=== PATIENT | male | born 1980 | race African-American/Black ===

== ENCOUNTER 2019-06-19 23:34 | Emergency (ER) | payer SELFPAY ==
[2019-06-19] MEDS ORDERED: INSULIN -REGULAR HUMAN 50 UNIT/0.5 ML ML ONE (23:55)
[2019-06-20] MEDS ORDERED: INSULIN GLARGINE 100 UNITS/ML SQ ONE (00:08)
[2019-06-20 00:33] LABS: Absolute Lymphocytes (CBC) 0.4 K/uL (0.7-4.9); Basophils % 0.7 % (0-1.3); Hematocrit 45.2 % (39.6-49.0); Lymphocytes % 5.3 % (15.3-44.8); MPV 9.3 fL (7.6-11.3); RBC Red Blood Cell Count 5.84 M/uL (4.33-5.43)
[2019-06-20 00:49] LABS: BUN Blood Urea Nitrogen 13 mg/dL (7-18); Bicarbonate 25 mmol/L (21-32); Glucose Level 527 mg/dL (74-106); Potassium 3.8 mmol/L (3.5-5.1); Sodium Level 133 mmol/L (136-145)
[2019-06-20 00:51] LABS: ALT/SGPT 49 U/L (12-78); AST/SGOT 27 U/L (15-37); Albumin 3.3 g/dL (3.4-5.0); Alkaline Phosphatase 123 U/L (45-117); Bilirubin Direct < 0.1 mg/dL (0-0.2); Bilirubin Total 0.4 mg/dL (0.2-1.0); Magnesium 1.8 mg/dL (1.8-2.4); Protein, Total 6.6 g/dL (6.4-8.2); Troponin (Emerg Dept Use Only) < 0.02 ng/mL (0.0-0.045)
[2019-06-20 01:30] LABS: Blood Morphology Comment NOT SEEN (NOT SEEN); Platelet Estimate ADEQ
[2019-06-20] MEDS ORDERED: INSULIN -REGULAR HUMAN 50 UNIT/0.5 ML ML ONE (01:43)
[2019-06-20] MEDS ORDERED: NA CHLORIDE 0.9% 2,000 ML ONE (01:43)
[2019-06-20 03:04] LABS: BUN Blood Urea Nitrogen 10 mg/dL (7-18); Bicarbonate 26 mmol/L (21-32); Glucose Level 234 mg/dL (74-106); Potassium 3.5 mmol/L (3.5-5.1); Sodium Level 139 mmol/L (136-145)
--- NOTE | 2019-06-20 03:15 | ER ---
Nurse's Notes [facility] Name: Dawson Mi Age: 38 yrs Sex: Male : 1980 Arrival Date: 06/19/2019 Time: 23:35 Bed 6 Private MD: Diagnosis: Type 1 diabetes mellitus Presentation: 06/19 23:37 Presenting complaint: EMS states: "we were called for a pt having some high blood jd3 sugar. it was reading over 500 for us. he was reporting some body aches and pains. denies nausea and vomiting. we started an 18 G IV to the left AC and gave a total of 1000 ml NS.". Transition of care: patient was not received from another setting of care. Onset of symptoms was June 19, 2019. Risk Assessment: Do you want to hurt yourself or someone else? Patient reports no desire to harm self or others. Initial Sepsis Screen: Does the patient meet any 2 criteria? No. Patient's initial sepsis screen is negative. Does the patient have a suspected source of infection? No. Patient's initial sepsis screen is negative. Care prior to arrival: IV initiated. 18 GA, in the left antecubital area, Glucose check: 500. 23:37 Method Of Arrival: EMS: [facility] jd3 23:37 Acuity: EDINSON 3 jd3 Historical: - Allergies: 23:41 No Known Allergies; jd3 - Home Meds: 23:41 Lantus 100 unit/mL Sub-Q soln [Active]; jd3 - PMHx: 23:41 Diabetes - NIDDM; jd3 - PSHx: 23:41 None; jd3 - Immunization history:: Adult Immunizations up to date. - Social history:: Smoking status: Patient uses tobacco products, smokes one-half pack cigarettes per day. - Family history:: not pertinent. - Ebola Screening: : Patient negative for fever greater than or equal to 101.5 degrees Fahrenheit, and additional compatible Ebola Virus Disease symptoms. Screenin/22 00:41 Abuse screen: Denies threats or abuse. Nutritional screening: No deficits noted. jd3 Tuberculosis screening: No symptoms or risk factors identified. Fall Risk IV access (20 points). Ambulatory Aid- None/Bed Rest/Nurse Assist (0 pts). Gait- Normal/Bed Rest/Wheelchair (0 pts) Mental Status- Oriented to own ability (0 pts). Total Beck Fall Scale indicates No Risk (0-24 pts). Assessment: 06/19 23:40 General: Appears in no apparent distress. comfortable, Behavior is calm, cooperative, jd3 appropriate for age, Reports occasional body aches. Pain: Denies pain. Neuro: Level of Consciousness is awake, alert, obeys commands, Oriented to person, place, time, situation. Cardiovascular: Heart tones S1 S2 present Capillary refill < 3 seconds Patient's skin is warm and dry. Respiratory: Airway is patent Respiratory effort is even, unlabored, Respiratory pattern is regular, symmetrical, Breath sounds are clear bilaterally. GI: No signs and/or symptoms were reported involving the gastrointestinal system. Patient currently denies diarrhea, nausea, vomiting. : No signs and/or symptoms were reported regarding the genitourinary system. EENT: No signs and/or symptoms were reported regarding the EENT system. Derm: Skin is intact, Skin is dry, Skin is normal, Skin temperature is warm. Musculoskeletal: Circulation, motion, and sensation intact. Range of motion: intact in all extremities. 06/20 00:38 Reassessment: Patient appears in no apparent distress at this time. No changes from jd3 previously documented assessment. Patient and/or family updated on plan of care and expected duration. Pain level reassessed. Patient is alert, oriented x 3, equal unlabored respirations, skin warm/dry/pink. Patient denies pain at this time. 01:28 Reassessment: Patient appears in no apparent distress at this time. Patient and/or jd3 family updated on plan of care and expected duration. Pain level reassessed. Patient is alert, oriented x 3, equal unlabored respirations, skin warm/dry/pink. resting in bed with even and unlabored respirations. eyes closed. no distress noted. call milton in reach. 02:47 Reassessment: Patient appears in no apparent distress at this time. No changes from jd3 previously documented assessment. Patient and/or family updated on plan of care and expected duration. Pain level reassessed. Patient is alert, oriented x 3, equal unlabored respirations, skin warm/dry/pink. 03:24 Reassessment: Patient appears in no apparent distress at this time. Patient and/or jd3 family updated on plan of care and expected duration. Pain level reassessed. Patient is alert, oriented x 3, equal unlabored respirations, skin warm/dry/pink. pt reported understanding of discharge instructions. even and steady gait upon discharge. Vital Signs: 06/19 23:42 BP 124 / 71; Pulse 93; Resp 16 S; Temp 98.6(O); Pulse Ox 98% on R/A; Weight 102.06 kg jd3 (R); Height 6 ft. 8 in. (203.20 cm) (R); Pain 0/10; 06/20 01:27 BP 113 / 71; Pulse 95; Resp 17 S; Pulse Ox 100% on R/A; jd3 02:46 BP 124 / 77; Pulse 95; Resp 18 S; Pulse Ox 98% on R/A; jd3 06/19 23:42 Body Mass Index 24.72 (102.06 kg, 203.20 cm) jd3 ED Course: 06/19 23:35 Patient arrived in ED. ds1 23:35 Sarath Saucedo MD is Attending Physician. lindy 23:36 Live Drake RN is Primary Nurse. jd3 23:37 Maintain EMS IV. Dressing intact. Good blood return noted. Site clean \\T\\ dry. Gauge \\T\\ yenifer 3 site: 18 G left AC. 23:41 Triage completed. jd3 23:42 Arm band placed on. jd3 06/20 00:04 XRAY Chest (1 view) In Process Unspecified. EDMS 00:42 Patient has correct armband on for positive identification. Placed in gown. Bed in low jd3 position. Call light in reach. Side rails up X 1. 03:22 No provider procedures requiring assistance completed. IV discontinued, intact, jd3 bleeding controlled, No redness/swelling at site. Pressure dressing applied. Administered Medications: 00:04 Drug: Insulin Regular Human 10 units {Co-Signature: rr5 (Josh Kingston RN).} Route: jd3 IVP; Site: left antecubital; 01:00 Follow up: Response: No adverse reaction jd3 00:04 Drug: Insulin Regular Human 10 units {Co-Signature: rr5 (Josh Kingston RN).} Route: jd3 Sub-Q; Site: abdomen; 01:00 Follow up: Response: No adverse reaction jd3 00:16 Drug: LanTUS 40 units Route: Sub-Q; Site: abdomen; jd3 01:10 Follow up: Response: No adverse reaction jd3 01:45 Drug: NS 0.9% 1000 ml Route: IV; Rate: 1 bolus; Site: left antecubital; jd3 02:35 Follow up: Response: No adverse reaction; IV Status: Completed infusion; IV Intake: jd3 1000ml 01:46 Drug: Insulin Regular Human 8 units {Co-Signature: aa1 (Zully Mendieta RN).} Route: jd3 IVP; Site: left antecubital; 03:26 Follow up: Response: No adverse reaction jd3 02:35 Drug: NS 0.9% 1000 ml Route: IV; Rate: 1 bolus; Site: left antecubital; jd3 03:26 Follow up: Response: No adverse reaction; IV Status: Completed infusion; IV Intake: jd3 1000ml Intake: 02:35 IV: 1000ml; Total: 1000ml. jd3 03:26 IV: 1000ml; Total: 2000ml. jd3 Outcome: 03:14 Discharge ordered by MD. israel 03:23 Discharged to home ambulatory, with family. jd3 03:23 Condition: stable 03:23 Discharge instructions given to patient, Instructed on discharge instructions, follow up and referral plans. medication usage, Demonstrated understanding of instructions, follow-up care, medications, Prescriptions given X 2. 03:26 Patient left the ED. jd3 Signatures: Dispatcher [employer] Sarath Edwards MD MD cha Sanford, Isela ds1 Live Drake RN RN jd3 Josh Kingston RN rr5 Zully Mendieta RN aa1
--- NOTE | 2019-06-20 03:15 | EDPHYS ---
Physician Documentation [facility] Name: Dawson Mi Age: 38 yrs Sex: Male : 1980 Arrival Date: 06/19/2019 Time: 23:35 Bed 6 Private MD: ED Physician Sarath Saucedo HPI: 06/19 23:40 This 38 yrs old Black Male presents to ER via Unassigned with complaints of High Blood lindy Sugar. 23:40 The patient or guardian reports hyperglycemia, that was potentially precipitated by no lindy particular event. Onset: The symptoms/episode began/occurred 3 day(s) ago. Associated signs and symptoms: Pertinent positives: polydipsia, polyuria, Pertinent negatives: None. Current symptoms: In the emergency department the patient's symptoms are unchanged from the initial presentation. The patient has experienced similar episodes in the past, multiple times. Historical: - Allergies: 23:41 No Known Allergies; jd3 - Home Meds: 23:41 Lantus 100 unit/mL Sub-Q soln [Active]; jd3 - PMHx: 23:41 Diabetes - NIDDM; jd3 - PSHx: 23:41 None; jd3 - Immunization history:: Adult Immunizations up to date. - Social history:: Smoking status: Patient uses tobacco products, smokes one-half pack cigarettes per day. - Family history:: not pertinent. - Ebola Screening: : Patient negative for fever greater than or equal to 101.5 degrees Fahrenheit, and additional compatible Ebola Virus Disease symptoms. ROS: 23:40 Constitutional: Negative for fever, chills, and weight loss, Eyes: Negative for injury, lindy pain, redness, and discharge, ENT: Negative for injury, pain, and discharge, Neck: Negative for injury, pain, and swelling, Cardiovascular: Negative for chest pain, palpitations, and edema, Respiratory: Negative for shortness of breath, cough, wheezing, and pleuritic chest pain, Abdomen/GI: Negative for abdominal pain, nausea, vomiting, diarrhea, and constipation, Back: Negative for injury and pain, : Negative for injury, bleeding, discharge, and swelling, MS/Extremity: Negative for injury and deformity, Skin: Negative for injury, rash, and discoloration, Neuro: Negative for headache, weakness, numbness, tingling, and seizure, Psych: Negative for depression, anxiety, suicide ideation, homicidal ideation, and hallucinations, Allergy/Immunology: Negative for hives, rash, and allergies, Hematologic/Lymphatic: Negative for swollen nodes, abnormal bleeding, and unusual bruising. 23:40 Endocrine: Positive for polydipsia, polyuria. Exam: 23:40 Constitutional: This is a well developed, well nourished patient who is awake, alert, lindy and in no acute distress. Head/Face: Normocephalic, atraumatic. Eyes: Pupils equal round and reactive to light, extra-ocular motions intact. Lids and lashes normal. Conjunctiva and sclera are non-icteric and not injected. Cornea within normal limits. Periorbital areas with no swelling, redness, or edema. ENT: Nares patent. No nasal discharge, no septal abnormalities noted. Tympanic membranes are normal and external auditory canals are clear. Oropharynx with no redness, swelling, or masses, exudates, or evidence of obstruction, uvula midline. Mucous membranes moist. Neck: Trachea midline, no thyromegaly or masses palpated, and no cervical lymphadenopathy. Supple, full range of motion without nuchal rigidity, or vertebral point tenderness. No Meningismus. Chest/axilla: Normal chest wall appearance and motion. Nontender with no deformity. No lesions are appreciated. Cardiovascular: Regular rate and rhythm with a normal S1 and S2. No gallops, murmurs, or rubs. Normal PMI, no JVD. No pulse deficits. Respiratory: Lungs have equal breath sounds bilaterally, clear to auscultation and percussion. No rales, rhonchi or wheezes noted. No increased work of breathing, no retractions or nasal flaring. Abdomen/GI: Soft, non-tender, with normal bowel sounds. No distension or tympany. No guarding or rebound. No evidence of tenderness throughout. Back: No spinal tenderness. No costovertebral tenderness. Full range of motion. Skin: Warm, dry with normal turgor. Normal color with no rashes, no lesions, and no evidence of cellulitis. MS/ Extremity: Pulses equal, no cyanosis. Neurovascular intact. Full, normal range of motion. Neuro: Awake and alert, GCS 15, oriented to person, place, time, and situation. Cranial nerves II-XII grossly intact. Motor strength 5/5 in all extremities. Sensory grossly intact. Cerebellar exam normal. Normal gait. Psych: Awake, alert, with orientation to person, place and time. Behavior, mood, and affect are within normal limits. Vital Signs: 23:42 BP 124 / 71; Pulse 93; Resp 16 S; Temp 98.6(O); Pulse Ox 98% on R/A; Weight 102.06 kg jd3 (R); Height 6 ft. 8 in. (203.20 cm) (R); Pain 0/10; 06/20 01:27 BP 113 / 71; Pulse 95; Resp 17 S; Pulse Ox 100% on R/A; jd3 02:46 BP 124 / 77; Pulse 95; Resp 18 S; Pulse Ox 98% on R/A; jd3 06/19 23:42 Body Mass Index 24.72 (102.06 kg, 203.20 cm) j MDM: 06/19 23:35 Patient medically screened. [facility] 23:42 Data reviewed: vital signs, nurses notes, lab test result(s), EKG, radiologic studies, lindy plain films. 06/19 23:37 Order name: glucometer results - FOR PT WITH NO ID; Complete Time: 01:27 [facility] 06/19 23:38 Order name: Basic Metabolic Panel; Complete Time: 01:27 [facility] 06/19 23:38 Order name: CBC with Diff; Complete Time: 02:14 [facility] 06/19 23:38 Order name: LFT's; Complete Time: 01:27 [facility] 06/19 23:38 Order name: Magnesium; Complete Time: 01:27 [facility] 06/19 23:38 Order name: Troponin (emerg Dept Use Only); Complete Time: 01:27 [facility] 06/19 23:38 Order name: XRAY Chest (1 view) [facility] 06/19 23:38 Order name: Ketone, Serum; Complete Time: 01:27 [facility] 06/20 00:42 Order name: Manual Differential; Complete Time: 02:14 EDMS 06/20 01:31 Order name: Chem 7; Complete Time: 03:12 [facility] 06/20 01:33 Order name: Glucose, Ancillary Testing; Complete Time: 02:14 EDMS 06/20 01:47 Order name: Urine Dipstick--Ancillary (enter results) cm6 06/19 23:38 Order name: EKG; Complete Time: 23:39 [facility] 06/19 23:38 Order name: Cardiac monitoring; Complete Time: 23:49 [facility] 06/19 23:38 Order name: EKG - Nurse/Tech; Complete Time: 00:14 [facility] 06/19 23:38 Order name: IV Saline Lock; Complete Time: 00:01 [facility] 06/19 23:38 Order name: Labs collected and sent; Complete Time: 00:01 [facility] 06/19 23:38 Order name: O2 Per Protocol; Complete Time: 23:49 [facility] 06/19 23:38 Order name: O2 Sat Monitoring; Complete Time: 23:49 [facility] Administered Medications: 06/20 00:04 Drug: Insulin Regular Human 10 units {Co-Signature: rr5 (Josh Kingston RN).} Route: jd3 IVP; Site: left antecubital; 01:00 Follow up: Response: No adverse reaction jd3 00:04 Drug: Insulin Regular Human 10 units {Co-Signature: rr5 (Josh Kingston RN).} Route: jd3 Sub-Q; Site: abdomen; 01:00 Follow up: Response: No adverse reaction jd3 00:16 Drug: LanTUS 40 units Route: Sub-Q; Site: abdomen; jd3 01:10 Follow up: Response: No adverse reaction jd3 01:45 Drug: NS 0.9% 1000 ml Route: IV; Rate: 1 bolus; Site: left antecubital; jd3 02:35 Follow up: Response: No adverse reaction; IV Status: Completed infusion; IV Intake: jd3 1000ml 01:46 Drug: Insulin Regular Human 8 units {Co-Signature: aa1 (Zully Mendieta RN).} Route: jd3 IVP; Site: left antecubital; 03:26 Follow up: Response: No adverse reaction jd3 02:35 Drug: NS 0.9% 1000 ml Route: IV; Rate: 1 bolus; Site: left antecubital; jd3 03:26 Follow up: Response: No adverse reaction; IV Status: Completed infusion; IV Intake: jd3 1000ml Disposition: 06/20/19 03:14 Discharged to Home. Impression: Type 1 diabetes mellitus. - Condition is Stable. - Discharge Instructions: Type 1 Diabetes Mellitus, Diagnosis, Adult, Basic Carbohydrate Counting for Diabetes Mellitus, Diabetes and Exercise, Insulin Treatment for Diabetes, Type 1 Diabetes Mellitus, Self Care, Adult, Type 1 Diabetes Mellitus, Diagnosis, Adult, [id number], Type 1 Diabetes Mellitus, Self Care, Adult, [id number]. - Prescriptions for Lantus 100 unit/mL Subcutaneous solution - inject 40 unit by SUBCUTANEOUS route once daily; 1 Cartridge. Novolin R 100 unit/mL Injection solution - inject 6 unit by SUBCUTANEOUS route 3 times per day; 1 vial. - Medication Reconciliation Form, Thank You Letter, Antibiotic Education, Prescription Opioid Use form. - Follow up: Private Physician; When: 2 - 3 days; Reason: Recheck today's complaints, Continuance of care, Re-evaluation by your physician. - Problem is new. - Symptoms have improved. Signatures: Dispatcher [employer] [facility] Sarath Saucedo MD MD cha Davies, Jonathon, RN RN jd3 Josh Kingston RN rr5 Zully Mendieta RN aa1 Corrections: (The following items were deleted from the chart) 06/19 23:39 23:37 GLUCOSE+[id number].LAB.BRZ ordered. [facility] 06/20 03:26 03:14 06/20/2019 03:14 Discharged to Home. Impression: Type 1 diabetes mellitus. jd3 Condition is Stable. Discharge Instructions: Type 1 Diabetes Mellitus, Diagnosis, Adult, Insulin Treatment for Diabetes, Type 1 Diabetes Mellitus, Self Care, Adult, Type 1 Diabetes Mellitus, Diagnosis, Adult, [id number], Type 1 Diabetes Mellitus, Self Care, Adult, [id number], Basic Carbohydrate Counting for Diabetes Mellitus, Diabetes and Exercise. Prescriptions for Lantus 100 unit/mL Subcutaneous solution - inject 40 unit by SUBCUTANEOUS route once daily; 1 Cartridge, Novolin R 100 unit/mL Injection solution - inject 8 unit by SUBCUTANEOUS route 3 times per day; 1 vial. and Forms are Medication Reconciliation Form, Thank You Letter, Antibiotic Education, Prescription Opioid Use. Follow up: Private Physician; When: 2 - 3 days; Reason: Recheck today's complaints, Continuance of care, Re-evaluation by your physician. Problem is new. Symptoms have improved. lindy
[2019-06-20 03:18] LABS: Urine Blood NEGATIVE (NEG); Urine Glucose 2+ (NEG); Urine Protein NEGATIVE (NEG); Urine Specific Gravity <1.005 (1.005-1.030)
[2019-06-20 03:50] VITALS: TEMP 98.6
[2019-06-20 03:52] VITALS: BP 124/77; O2SAT 98
--- NOTE | 2019-06-20 09:43 | RAD REPORT ---
EXAM DESCRIPTION: RAD - Chest Single View - 06/20/2019 12:02 am CLINICAL HISTORY: COUGH Chest pain. COMPARISON: Chest Single View dated 12/17/2016; Chest Single View dated 10/07/2016 FINDINGS: Portable technique limits examination quality. The lungs are grossly clear. The heart is normal in size. No displaced fractures. IMPRESSION: No acute intrathoracic process suspected.
--- NOTE | 2019-06-21 20:49 | EKG ---
Test Date: 2019-06-20 Test Time: 00:18:00 Bag Tester: TIMO MEASUREMENT RESULTS: Intervals: Rate: 86 [place]: 174 QRSD: 98 QT: 344 QTc: 411 [place]: P: 77 [place]: 174 QRS: 71 T: 56 INTERPRETIVE STATEMENTS: Normal sinus rhythm Biatrial enlargement ST elevation, consider anterior injury or acute infarct ACUTE [place] / STEMI Abnormal ECG Compared to ECG 12/17/2016 14:43:00 Atrial abnormality now present ST (T wave) deviation now present Myocardial infarct finding now present Sinus tachycardia no longer present T-wave abnormality no longer present Possible ischemia no longer present Electronically Signed On 06-21-19 20:46:57 [employer] by Tam Alejo
== END 2019-06-20 03:26 | disposition home or self-care (01) ==
LOC: ER 23:34
DX: E10.65 Type 1 diabetes mellitus with hyperglycemia (principal); F17.210 Nicotine dependence, cigarettes, uncomplicated; Z79.4 Long term (current) use of insulin
CPT/HCPCS: 36415; 71045; 80048; 80076; 81003; 82010; 82947; 83735; 84484; 85025; 93005; 96361; 96372; 96374; 99284; J1815; J7030

== ENCOUNTER 2019-06-21 20:43 | Emergency (ER) | payer SELFPAY ==
--- NOTE | 2019-06-21 21:25 | EDPHYS ---
Physician Documentation [facility] Name: Dawson Mi Age: 38 yrs Sex: Male : 1980 Arrival Date: 06/21/2019 Time: 20:43 Bed 18 Private MD: ED Physician Sarath Saucedo HPI: 06/21 21:21 This 38 yrs old Black Male presents to ER via EMS with complaints of cough and lindy congestion. 21:21 The patient or guardian reports cough. Onset: The symptoms/episode began/occurred 2 lindy day(s) ago. Severity of symptoms: At their worst the symptoms were mild, in the emergency department the symptoms are unchanged. Modifying factors: The symptoms are alleviated by nothing, the symptoms are aggravated by nothing. Associated signs and symptoms: The patient has no apparent associated signs or symptoms. The patient has not experienced similar symptoms in the past. Historical: - Allergies: 20:49 No Known Allergies; wh - Home Meds: 20:49 insulin regular human injection injection [Active]; - PMHx: 20:49 Diabetes - NIDDM; - PSHx: 20:49 None; - Immunization history:: Adult Immunizations not up to date. - Social history:: Smoking status: Patient uses tobacco products. - Ebola Screening: : Patient negative for fever greater than or equal to 101.5 degrees Fahrenheit, and additional compatible Ebola Virus Disease symptoms Patient denies exposure to infectious person. - Family history:: not pertinent. ROS: 21:21 Constitutional: Negative for fever, chills, and weight loss, Eyes: Negative for injury, lindy pain, redness, and discharge, ENT: Negative for injury, pain, and discharge, Neck: Negative for injury, pain, and swelling, Cardiovascular: Negative for chest pain, palpitations, and edema, Abdomen/GI: Negative for abdominal pain, nausea, vomiting, diarrhea, and constipation, Back: Negative for injury and pain, : Negative for injury, bleeding, discharge, and swelling, MS/Extremity: Negative for injury and deformity, Skin: Negative for injury, rash, and discoloration, Neuro: Negative for headache, weakness, numbness, tingling, and seizure, Psych: Negative for depression, anxiety, suicide ideation, homicidal ideation, and hallucinations, Allergy/Immunology: Negative for hives, rash, and allergies, Endocrine: Negative for neck swelling, polydipsia, polyuria, polyphagia, and marked weight changes, Hematologic/Lymphatic: Negative for swollen nodes, abnormal bleeding, and unusual bruising. 21:21 Respiratory: Positive for cough, "sounds productive". Exam: 21:21 Constitutional: This is a well developed, well nourished patient who is awake, alert, lindy and in no acute distress. Head/Face: Normocephalic, atraumatic. Eyes: Pupils equal round and reactive to light, extra-ocular motions intact. Lids and lashes normal. Conjunctiva and sclera are non-icteric and not injected. Cornea within normal limits. Periorbital areas with no swelling, redness, or edema. ENT: Nares patent. No nasal discharge, no septal abnormalities noted. Tympanic membranes are normal and external auditory canals are clear. Oropharynx with no redness, swelling, or masses, exudates, or evidence of obstruction, uvula midline. Mucous membranes moist. Neck: Trachea midline, no thyromegaly or masses palpated, and no cervical lymphadenopathy. Supple, full range of motion without nuchal rigidity, or vertebral point tenderness. No Meningismus. Chest/axilla: Normal chest wall appearance and motion. Nontender with no deformity. No lesions are appreciated. Cardiovascular: Regular rate and rhythm with a normal S1 and S2. No gallops, murmurs, or rubs. Normal PMI, no JVD. No pulse deficits. Respiratory: Lungs have equal breath sounds bilaterally, clear to auscultation and percussion. No rales, rhonchi or wheezes noted. No increased work of breathing, no retractions or nasal flaring. Abdomen/GI: Soft, non-tender, with normal bowel sounds. No distension or tympany. No guarding or rebound. No evidence of tenderness throughout. Back: No spinal tenderness. No costovertebral tenderness. Full range of motion. Male : Normal genitalia with no discharge or lesions. Skin: Warm, dry with normal turgor. Normal color with no rashes, no lesions, and no evidence of cellulitis. MS/ Extremity: Pulses equal, no cyanosis. Neurovascular intact. Full, normal range of motion. Neuro: Awake and alert, GCS 15, oriented to person, place, time, and situation. Cranial nerves II-XII grossly intact. Motor strength 5/5 in all extremities. Sensory grossly intact. Cerebellar exam normal. Normal gait. Psych: Awake, alert, with orientation to person, place and time. Behavior, mood, and affect are within normal limits. Vital Signs: 20:49 BP 127 / 79; Pulse 97; Resp 18; Temp 98.8; Pulse Ox 97% ; Weight 102.06 kg; Height 6 wh ft. 8 in. (203.20 cm); Pain 0/10; 21:57 BP 133 / 87; Pulse 87; Resp 18; Pulse Ox 97% ; wh 20:49 Body Mass Index 24.72 (102.06 kg, 203.20 cm) MDM: 20:48 Patient medically screened. [facility] 21:22 Data reviewed: vital signs, nurses notes, lab test result(s), Flu: negative radiologic [facility] studies, CT scan, plain films. 06/21 21:04 Order name: Flu; Complete Time: 21:54 06/21 21:04 Order name: Strep; Complete Time: 21:54 06/21 21:20 Order name: Chest Single View XRAY [facility] 06/21 21:25 Order name: Glucose, Ancillary Testing; Complete Time: 21:54 [facility] 06/21 21:29 Order name: Throat Culture [facility] 06/21 21:20 Order name: Blood Glucose Level; Complete Time: 21:20 [facility] Administered Medications: 21:27 Drug: Tamiflu 75 mg Route: PO; 21:58 Follow up: Response: No adverse reaction 21:27 Drug: Zithromax 500 mg Route: PO; 21:58 Follow up: Response: No adverse reaction Disposition: 06/21/19 21:25 Discharged to Home. Impression: Acute upper respiratory infection, unspecified, Type 2 diabetes mellitus, Influenza due to identified novel influenza A virus. - Condition is Stable. - Discharge Instructions: Type 2 Diabetes Mellitus, Diagnosis, Adult, Influenza, Adult, Upper Respiratory Infection, Adult, Cough, Adult, Type 2 Diabetes Mellitus, Diagnosis, Adult, [id number]. - Prescriptions for Zithromax Z- Josemanuel 250 mg Oral Tablet - take 1 tablet by ORAL route as directed for 5 days Day 1 - take two (2) tablets one time. Day 2, 3, 4 , 5 take one (1) tablet once daily.; 6 tablet. Tamiflu 75 mg Oral Capsule - take 1 tablet by ORAL route every 12 hours for 5 days; 14 tablet. - Medication Reconciliation Form, Thank You Letter, Antibiotic Education, Prescription Opioid Use form. - Follow up: Private Physician; When: 2 - 3 days; Reason: Recheck today's complaints, Continuance of care, Re-evaluation by your physician. - Problem is new. - Symptoms have improved. Signatures: Dispatcher [employer] Sarath Edwards MD MD cha [place], Winsy wh Corrections: (The following items were deleted from the chart) 21:54 21:25 06/21/2019 21:25 Discharged to Home. Impression: Acute upper respiratory lindy infection, unspecified; Type 2 diabetes mellitus. Condition is Stable. Forms are Medication Reconciliation Form, Thank You Letter, Antibiotic Education, Prescription Opioid Use. Follow up: Private Physician; When: 2 - 3 days; Reason: Recheck today's complaints, Continuance of care, Re-evaluation by your physician. Problem is new. Symptoms have improved. [facility] 22:08 21:54 06/21/2019 21:25 Discharged to Home. Impression: Acute upper respiratory wh infection, unspecified; Type 2 diabetes mellitus; Influenza due to identified novel influenza A virus. Condition is Stable. Discharge Instructions: Type 2 Diabetes Mellitus, Diagnosis, Adult, Upper Respiratory Infection, Adult, Cough, Adult, Type 2 Diabetes Mellitus, Diagnosis, Adult, [id number]. Prescriptions for Zithromax Z-Josemanuel 250 mg Oral Tablet - take 1 tablet by ORAL route as directed for 5 days Day 1 - take two (2) tablets one time. Day 2, 3, 4 , 5 take one (1) tablet once daily.; 6 tablet, Tamiflu 75 mg Oral Capsule - take 1 tablet by ORAL route every 12 hours for 5 days; 14 tablet. and Forms are Medication Reconciliation Form, Thank You Letter, Antibiotic Education, Prescription Opioid Use. Follow up: Private Physician; When: 2 - 3 days; Reason: Recheck today's complaints, Continuance of care, Re-evaluation by your physician. Problem is new. Symptoms have improved. lindy
--- NOTE | 2019-06-21 21:25 | ER ---
Nurse's Notes [facility] Name: Dawson Mi Age: 38 yrs Sex: Male : 1980 Arrival Date: 06/21/2019 Time: 20:43 Bed 18 Private MD: Diagnosis: Acute upper respiratory infection, unspecified;Type 2 diabetes mellitus;Influenza due to identified novel influenza A virus Presentation: 06/21 20:45 Presenting complaint: EMS states: Pt was seen in ER last Friday for high blood sugar, wh now C/O body aches, malaise, decreased appetite, polyuria and flu like symptoms. Transition of care: patient was not received from another setting of care. Onset of symptoms was June 19, 2019. Risk Assessment: Do you want to hurt yourself or someone else? Patient reports no desire to harm self or others. Initial Sepsis Screen: Does the patient meet any 2 criteria? HR > 90 bpm. Does the patient have a suspected source of infection? No. Patient's initial sepsis screen is negative. Care prior to arrival: Glucose check: 316. 20:45 Method Of Arrival: EMS: [facility] 20:45 Acuity: [facility] 4 Historical: - Allergies: 20:49 No Known Allergies; - Home Meds: 20:49 insulin regular human injection injection [Active]; - PMHx: 20:49 Diabetes - NIDDM; - PSHx: 20:49 None; - Immunization history:: Adult Immunizations not up to date. - Social history:: Smoking status: Patient uses tobacco products. - Ebola Screening: : Patient negative for fever greater than or equal to 101.5 degrees Fahrenheit, and additional compatible Ebola Virus Disease symptoms Patient denies exposure to infectious person. - Family history:: not pertinent. Screenin:50 Abuse screen: Denies threats or abuse. Denies injuries from another. Nutritional screening: No deficits noted. Tuberculosis screening: No symptoms or risk factors identified. Fall Risk None identified. Assessment: 20:45 General: Appears in no apparent distress. Behavior is calm, cooperative, appropriate wh for age. Pain: Denies pain. Neuro: Level of Consciousness is awake, alert, obeys commands, Oriented to person, place, time, situation, Appropriate for age. Cardiovascular: Heart tones S1 S2. Respiratory: Airway is patent Respiratory effort is even, unlabored, Respiratory pattern is regular, symmetrical, Breath sounds are clear bilaterally. GI: Abdomen is flat, non-distended. : No signs and/or symptoms were reported regarding the genitourinary system. EENT: Throat is pink. Derm: Skin is intact, is healthy with good turgor, Skin is pink, warm \T\ dry. normal. Musculoskeletal: Circulation, motion, and sensation intact. 21:47 Reassessment: Patient appears in no apparent distress at this time. No changes from previously documented assessment. Patient and/or family updated on plan of care and expected duration. Pain level reassessed. Patient is alert, oriented x 3, equal unlabored respirations, skin warm/dry/pink. Vital Signs: 20:49 BP 127 / 79; Pulse 97; Resp 18; Temp 98.8; Pulse Ox 97% ; Weight 102.06 kg; Height 6 wh ft. 8 in. (203.20 cm); Pain 0/10; 21:57 BP 133 / 87; Pulse 87; Resp 18; Pulse Ox 97% ; wh 20:49 Body Mass Index 24.72 (102.06 kg, 203.20 cm) ED Course: 20:43 Patient arrived in ED. ds1 20:45 Soledad Arce is Primary Nurse. 20:47 Triage completed. 20:48 Sarath Saucedo MD is Attending Physician. [facility] 20:50 Patient has correct armband on for positive identification. Placed in gown. Bed in low wh position. Call light in reach. Side rails up X 1. Pulse ox on. NIBP on. 20:50 Arm band placed on right wrist. 21:46 Chest Single View XRAY In Process Unspecified. EDMS 22:07 No provider procedures requiring assistance completed. Patient did not have IV access during this emergency room visit. Administered Medications: 21:27 Drug: Tamiflu 75 mg Route: PO; 21:58 Follow up: Response: No adverse reaction 21:27 Drug: Zithromax 500 mg Route: PO; 21:58 Follow up: Response: No adverse reaction Outcome: 21:25 Discharge ordered by . [facility] 22:08 Discharged to home ambulatory. 22:08 Condition: stable 22:08 Discharge instructions given to patient, Instructed on discharge instructions, follow up and referral plans. medication usage, POC URTI, Flu Demonstrated understanding of instructions, follow-up care, medications, POC Prescriptions given X 2. 22:08 Patient left the ED. Signatures: Dispatcher [employer] Sarath Edwards MD MD cha [place], Demi ds1 Soledad Arce Corrections: (The following items were deleted from the chart) 21:59 20:45 Acuity: [facility]
[2019-06-21] MEDS ORDERED: AZITHROMYCIN 250 MG TAB ONE (21:27)
[2019-06-21] MEDS ORDERED: OSELTAMIVIR 75 MG CAP ONE (21:27)
[2019-06-22 01:19] VITALS: BP 133/87; TEMP 98.8; O2SAT 97
--- NOTE | 2019-06-22 13:06 | RAD REPORT ---
EXAM DESCRIPTION: RAD - Chest Single View - 06/21/2019 9:43 pm CLINICAL HISTORY: Cough, body ache COMPARISON: June 19 TECHNIQUE: AP portable chest image was obtained 2136 hours . FINDINGS: No focal lung process. Interstitial pattern not substantially different from comparison. H eart and vasculature are normal. No measurable pleural effusion and no pneumothorax. No acute bony ab normality seen. No acute aortic findings suspected. IMPRESSION: No acute cardiopulmonary process. No significant interval change.
== END 2019-06-21 22:08 | disposition home or self-care (01) ==
LOC: ER 20:43
DX: J10.1 Influenza due to other identified influenza virus with other respiratory manifestations (principal); E11.9 Type 2 diabetes mellitus without complications; Z79.4 Long term (current) use of insulin; Z72.0 Tobacco use
CPT/HCPCS: 71045; 82947; 87070; 87081; 87804; 99284

== ENCOUNTER 2025-03-23 18:31 | Emergency (ER) | payer OTHER, SELFPAY ==
--- NOTE | 2025-03-23 19:08 | ER ---
Nurse's Notes [facility] Name: Dawson Mi Age: 44 yrs Sex: Male : 1980 Arrival Date: 03/23/2025 Time: 18:31 Bed DIS5 Private MD: Diagnosis: ED Course: 03/23 18:33 Patient arrived in ED. mr 18:41 Sarath Crook PA-C is PHCP. cp 18:41 Sarath Saucedo MD is Attending Physician. cp Administered Medications: No medications were administered Outcome: 19:07 Eloped from waiting room, before seeing physician Time discovered patient gone: dd2 March 23, 2025 at 19:07 19:07 unknown 19:07 Discharge instructions given to pt eloped 19:08 Patient left the ED. dd2 Signatures: Mercedes Guerrero, Claude Arce Sarath Crook PA-C PA-C cp DAVIS, DIANA, RN RN dd2
== END 2025-03-23 19:08 | disposition left against medical advice (07) ==
LOC: ER 18:31
DX: Z53.21 Procedure and treatment not carried out due to patient leaving prior to being seen by health care provider (principal)
CPT/HCPCS: 99282

== ENCOUNTER 2025-03-23 21:56 | Emergency (ER) | payer OTHER, SELFPAY ==
[2025-03-23 23:29] LABS: Absolute Lymphocytes (CBC) 1.5 K/uL (0.7-4.9); Hematocrit 43.8 % (39.6-49.0); Hemoglobin 14.2 g/dL (13.6-17.9); MCH 25.0 pg (27.0-35.0); MCHC 32.4 g/dL (32.0-36.0); MCV 77.2 fL (80-100); MPV 7.9 fL (7.6-11.3); Nucleated RBC Absolute Count 0.0 (0-0); Nucleated Red Blood Cells % 0.1 % (0-0); RBC Red Blood Cell Count 5.68 M/uL (4.33-5.43); White Blood Count 8.60 thou/uL (4.3-10.9)
[2025-03-23 23:30] LABS: ALT/SGPT 33.0 U/L (16-61); AST/SGOT 14.0 U/L (15-37); Albumin 3.6 g/dL (3.4-5.0); Albumin/Globulin Ratio 0.9 (1.1-1.8); Alkaline Phosphatase 69.0 U/L (45-117); Anion Gap 7.8 mEq/L (5.0-15.0); BUN Blood Urea Nitrogen 14.0 mg/dL (7-18); Globulin 3.9 g/dL (2.3-3.5); Glucose Level 156.0 mg/dL (74-106); Potassium 3.8 mEq/L (3.5-5.1); Uric Acid 5.3 mg/dL (3.5-7.2)
--- NOTE | 2025-03-23 23:37 | EDPHYS ---
Physician Documentation [facility] Name: Dawson Mi Age: 44 yrs Sex: Male : 1980 Arrival Date: 03/23/2025 Time: 21:56 Bed 12 Private MD: ED Physician Michelle Beltran HPI: 03/23 22:42 This 44 yrs old Black Male presents to ER via Ambulatory with complaints of Hand sp3 Swelling. 22:42 44-year-old male with history of diabetes presents to the ED with right hand swelling sp3 particularly in the thenar region. Patient states he has gout that runs in his family and he is concerned that he may have gout. Symptoms have been going on for a week off-and-on. He denies any direct injury. No repetitive motion or work. Patient states he is not currently working so work related injury is not a possibility. He denies any numbness or tingling or other body parts or swollen or tender. He denies fever, headache, neck pain, chest pain, shortness of breath, abdominal pain, vomiting, diarrhea, rash, syncope, known sick contacts, travel history, insect bite, or any other signs or symptoms on ROS at this time.. Historical: - Allergies: 22:29 No Known Allergies; vc1 - Home Meds: 22:29 metformin 500 mg oral tablet 2 times per day [Active]; vc1 - PMHx: 22:29 Diabetes - NIDDM; vc1 - PSHx: 22:29 None; vc1 - Immunization history:: Adult Immunizations up to date. - Infectious Disease History:: Denies. - Social history:: Smoking status: Patient denies any tobacco usage or history of. ROS: 22:43 Constitutional: Negative for fever, chills, and weight loss, Eyes: Negative for injury, sp3 pain, redness, and discharge, ENT: Negative for injury, pain, and discharge, Neck: Negative for injury, pain, and swelling, Cardiovascular: Negative for chest pain, palpitations, and edema, Respiratory: Negative for shortness of breath, cough, wheezing, and pleuritic chest pain, Abdomen/GI: Negative for abdominal pain, nausea, vomiting, diarrhea, and constipation, Back: Negative for injury and pain, : Negative for injury, bleeding, discharge, and swelling, Skin: Negative for injury, rash, and discoloration, Neuro: Negative for headache, weakness, numbness, tingling, and seizure, Psych: Negative for depression, anxiety, suicide ideation, homicidal ideation, and hallucinations, Allergy/Immunology: Negative for hives, rash, and allergies, Endocrine: Negative for neck swelling, polydipsia, polyuria, polyphagia, and marked weight changes, Hematologic/Lymphatic: Negative for swollen nodes, abnormal bleeding, and unusual bruising, 22:43 All other systems are negative, Exam: 22:44 Constitutional: This is a well developed, well nourished patient who is awake, alert, sp3 and in no acute distress. Head/Face: Normocephalic, atraumatic. Eyes: Pupils equal round and reactive to light, extra-ocular motions intact. Lids and lashes normal. Conjunctiva and sclera are non-icteric and not injected. Cornea within normal limits. Periorbital areas with no swelling, redness, or edema. Neck: Trachea midline, no thyromegaly or masses palpated, and no cervical lymphadenopathy. Supple, full range of motion without nuchal rigidity, or vertebral point tenderness. No Meningismus. Chest/axilla: Normal chest wall appearance and motion. Nontender with no deformity. No lesions are appreciated. Cardiovascular: Regular rate and rhythm with a normal S1 and S2. No gallops, murmurs, or rubs. Normal PMI, no JVD. No pulse deficits. Respiratory: Lungs have equal breath sounds bilaterally, clear to auscultation and percussion. No rales, rhonchi or wheezes noted. No increased work of breathing, no retractions or nasal flaring. Abdomen/GI: Soft, non-tender, with normal bowel sounds. No distension or tympany. No guarding or rebound. No evidence of tenderness throughout. Back: No spinal tenderness. No costovertebral tenderness. Full range of motion. Skin: Warm, dry with normal turgor. Normal color with no rashes, no lesions, and no evidence of cellulitis. Neuro: Awake and alert, GCS 15, oriented to person, place, time, and situation. Cranial nerves II-XII grossly intact. Motor strength 5/5 in all extremities. Sensory grossly intact. Cerebellar exam normal. Normal gait. Psych: Awake, alert, with orientation to person, place and time. Behavior, mood, and affect are within normal limits. 22:44 Musculoskeletal/extremity: Right thenar portion of the hand swollen and mildly tender. Skin is dry and no rashes present. Capillary refill is normal. Radial pulse is normal. No other abnormalities proximally. Remainder of joints and extremities are normal.. Vital Signs: 22:27 BP 124 / 104; Pulse 98; Resp 18; Temp 98; Pulse Ox 100% ; Weight 99.79 kg; Height 6 ft. vc1 9 in. ; Pain 9/10; 23:18 BP 112 / 72; Pulse 92; Resp 18; Pulse Ox 97% ; rg5 23:41 BP 132 / 92; Pulse 87; Resp 17; Pulse Ox 98% ; Pain 0/10; rg5 22:27 Body Mass Index 23.57 (99.79 kg, 205.74 cm) vc1 22:27 Pain Scale: Adult vc1 23:41 Pain Scale: Adult rg5 MDM: 22:31 Medical Screening Exam initiated sp3 22:44 Data reviewed: vital signs, nurses notes, lab test result(s). ED course: 44-year-old sp3 male with right hand swelling and thenar compartment area pain. Differential diagnosis includes gout, other none gouty inflammatory process, contusion/injury, muscle strain, among others. We will obtain blood work including CBC, chemistry and uric acid. Ice pack to the area.. 23:35 ED course: Fall labs negative. Will safely discharge patient home with orthopedic sp3 follow-up.. 03/23 22:37 Order name: Uric Acid; Complete Time: 23:35 sp3 03/23 22:37 Order name: CBC with Diff; Complete Time: 23:35 sp3 03/23 22:37 Order name: CMP; Complete Time: 23:35 sp3 03/23 22:37 Order name: Ice pack; Complete Time: 22:39 sp3 Administered Medications: No medications were administered Disposition Summary: 03/23/25 23:37 Discharge Ordered Notes: Location: Home sp3 Condition: Stable sp3 Diagnosis - Right thenar compartment swelling sp3 Followup: sp3 - With: Jaiden Palencia MD - When: Upon discharge from the Emergency Department - Reason: Continuance of care Discharge Instructions: - Discharge Summary Sheet sp3 - Joint Pain sp3 Forms: - Medication Reconciliation Form sp3 - Antibiotic Education sp3 - Prescription Opioid Use sp3 - Patient Portal Instructions sp3 - Leadership Thank You Letter sp3 Prescriptions: - Diclofenac Sodium 75 mg Oral Tablet Sustained Release - take 1 tablet ORAL route 2 times per day; 30 tablet; Refills: 0, Product sp3 Selection Permitted Signatures: Dispatcher [employer] Michelle Loaiza MD MD sp3 Scarlett Feng, RN RN vc1
--- NOTE | 2025-03-23 23:37 | ER ---
Nurse's Notes [facility] Name: Dawson Mi Age: 44 yrs Sex: Male : 1980 Arrival Date: 03/23/2025 Time: 21:56 Bed 12 Private MD: Diagnosis: Right thenar compartment swelling Presentation: 03/23 22:27 Chief complaint: Patient states: Right hand swelling and now hurting in wrist. vc1 Coronavirus screen: Client denies travel out of the [place] in the last 14 days. At this time, the client does not indicate any symptoms associated with coronavirus-19. Ebola Screen: Patient negative for fever greater than or equal to 101.5 degrees Fahrenheit, and additional compatible Ebola Virus Disease symptoms Patient denies exposure to infectious person. Patient denies travel to an Ebola-affected area in the 21 days before illness onset. No symptoms or risks identified at this time. Initial Sepsis Screen: Does the patient meet any 2 criteria? No. Patient's initial sepsis screen is negative. Does the patient have a suspected source of infection? No. Patient's initial sepsis screen is negative. Risk Assessment: Do you want to hurt yourself or someone else? Patient reports no desire to harm self or others. Onset of symptoms was March 21, 2025. 22:27 Method Of Arrival: Ambulatory vc1 22:27 Acuity: EDINSON 4 vc1 Historical: - Allergies: 22:29 No Known Allergies; vc1 - Home Meds: 22:29 metformin 500 mg oral tablet 2 times per day [Active]; vc1 - PMHx: 22:29 Diabetes - NIDDM; vc1 - PSHx: 22:29 None; vc1 - Immunization history:: Adult Immunizations up to date. - Infectious Disease History:: Denies. - Social history:: Smoking status: Patient denies any tobacco usage or history of. Screenin:30 [facility] ED Fall Risk Assessment (Adult) History of falling in the last 3 months, rg5 including since admission No falls in past 3 months (0 pts) Confusion or Disorientation No (0 pts) Intoxicated or Sedated No (0 pts) Impaired Gait No (0 pts) Mobility Assist Device Used No (0 pt) Altered Elimination No (0 pt) Score/Fall Risk Level 0 - 2 = Low Risk Oriented to surroundings, Maintained a safe environment. Abuse screen: Denies threats or abuse. Nutritional screening: No deficits noted. Tuberculosis screening: No symptoms or risk factors identified. Assessment: 22:30 General: Appears in no apparent distress. comfortable, Behavior is calm, cooperative, rg5 appropriate for age. Pain: Complains of pain in right hand Quality of pain is described as aching, dull. Neuro: Level of Consciousness is awake, alert, obeys commands, Oriented to person, place, time. Respiratory: Airway is patent Respiratory effort is even, unlabored. GI: No signs and/or symptoms were reported involving the gastrointestinal system. : No signs and/or symptoms were reported regarding the genitourinary system. EENT: No signs and/or symptoms were reported regarding the EENT system. Derm: Skin is intact, Skin is dry, Skin is normal. Musculoskeletal: Circulation, motion, and sensation intact. Range of motion: intact in all extremities. 23:18 Reassessment: No changes from previously documented assessment. Patient and/or family rg5 updated on plan of care and expected duration. Pain level reassessed. Patient is alert, oriented x 3, equal unlabored respirations, skin warm/dry/pink. Vital Signs: 22:27 BP 124 / 104; Pulse 98; Resp 18; Temp 98; Pulse Ox 100% ; Weight 99.79 kg; Height 6 ft. vc1 9 in. ; Pain 9/10; 23:18 BP 112 / 72; Pulse 92; Resp 18; Pulse Ox 97% ; rg5 23:41 BP 132 / 92; Pulse 87; Resp 17; Pulse Ox 98% ; Pain 0/10; rg5 22:27 Body Mass Index 23.57 (99.79 kg, 205.74 cm) vc1 22:27 Pain Scale: Adult vc1 23:41 Pain Scale: Adult rg5 ED Course: 21:57 Patient arrived in ED. mr 21:58 Michelle Beltran MD is Attending Physician. sp3 22:29 Triage completed. vc1 22:30 Arm band placed on left wrist. vc1 22:30 Patient has correct armband on for positive identification. Bed in low position. Call rg5 light in reach. Door closed. Noise minimized. Warm blanket given. 22:30 No provider procedures requiring assistance completed. Patient did not have IV access rg5 during this emergency room visit. 22:39 Duke Knapp, RN is Primary Nurse. rg5 23:36 Jaiden Palencia MD is Referral Physician. sp3 Administered Medications: No medications were administered Medication: 22:30 VIS not applicable for this client. rg5 Outcome: 23:37 Discharge ordered by . sp3 23:39 Discharged to home ambulatory, rg5 23:39 Condition: stable 23:39 Discharge instructions given to patient, Instructed on discharge instructions, follow up and referral plans. Demonstrated understanding of instructions, follow-up care, medications, Prescriptions given X 1, 23:42 Patient left the ED. rg5 Signatures: Mercedes Guerrero, Reg Reg BeltranMichelle MD MD sp3 Scarlett Feng RN RN vc1 Duke Knapp, GISELE RN rg5
[2025-03-24 00:27] VITALS: BP 132/92
[2025-03-24 00:32] VITALS: TEMP 98.3; O2SAT 95
== END 2025-03-23 23:42 | disposition home or self-care (01) ==
LOC: ER 21:56
DX: R22.31 Localized swelling, mass and lump, right upper limb (principal)
CPT/HCPCS: 36415; 80053; 84550; 85025; 99283

== ENCOUNTER 2025-03-24 16:02 | Emergency (ER) | payer OTHER, SELFPAY ==
[2025-03-24] MEDS ORDERED: ONDANSETRON 4 MG/2 ML VIAL ONE (16:29)
[2025-03-24] MEDS ORDERED: MORPHINE 4 MG/ML SYR ONE (16:29)
--- NOTE | 2025-03-24 17:23 | RAD REPORT ---
EXAM: XR RIGHT HAND HISTORY: Pain. Pain;Swelling COMPARISON: None TECHNIQUE: Multiple projections of the right hand submitted. FINDINGS: Mild soft tissue swelling along the dorsum of the hand and thenar region. No fracture, disl ocation or aggressive marrow lesion. No radiopaque foreign body or soft tissue gas.
[2025-03-24 17:38] LABS: Absolute Lymphocytes (CBC) 1.3 K/uL (0.7-4.9); Hematocrit 45.4 % (39.6-49.0); Hemoglobin 14.6 g/dL (13.6-17.9); MCH 25.1 pg (27.0-35.0); MCHC 32.2 g/dL (32.0-36.0); MCV 77.9 fL (80-100); MPV 8.6 fL (7.6-11.3); Nucleated RBC Absolute Count 0.0 (0-0); Nucleated Red Blood Cells % 0.1 % (0-0); RBC Red Blood Cell Count 5.83 M/uL (4.33-5.43); White Blood Count 9.40 thou/uL (4.3-10.9)
--- NOTE | 2025-03-24 17:56 | RAD REPORT ---
EXAMINATION: US RIGHT UPPER EXTREMITY VENOUS DOPPLER CLINICAL INDICATION: Pain;Swelling RIGHT TECHNIQUE: Complete bilateral duplex sonography of the RIGHT upper extremity veins was performed. The examination included compression for vein patency, color Doppler imaging and flow augmentation in response to distal compression of the internal jugular, brachiocephalic, subclavian, axillary, brachi al, radial, ulnar, cephalic and basilic veins. COMPARISON: No prior exam. FINDINGS: Duplex sonography testing of the veins of the RIGHT upper extremity was performed. Color flow imaging shows all veins to be compressible with [id number] color filling. Pulsatile and phasic flow is present within all upper extremity deep and superficial veins examined. IMPRESSION: There is no deep vein or superficial vein thrombosis.
[2025-03-24 18:41] LABS: PT Prothrombin Time 13.6 SECONDS (10-13.0); PTT, Activated Partial Thromb 34.7 SECONDS (27.2-37.4); Protime INR 1.21
[2025-03-24 18:48] LABS: ALT/SGPT 30.0 U/L (16-61); AST/SGOT 18.0 U/L (15-37); Albumin 3.8 g/dL (3.4-5.0); Albumin/Globulin Ratio 1.0 (1.1-1.8); Alkaline Phosphatase 74.0 U/L (45-117); Anion Gap 7.9 mEq/L (5.0-15.0); BUN Blood Urea Nitrogen 13.0 mg/dL (7-18); Globulin 3.9 g/dL (2.3-3.5); Glucose Level 135.0 mg/dL (74-106); Potassium 3.9 mEq/L (3.5-5.1)
--- NOTE | 2025-03-24 19:21 | EDPHYS ---
Physician Documentation [facility] Name: Dawson Mi Age: 44 yrs Sex: Male : 1980 Arrival Date: 03/24/2025 Time: 16:02 Bed 13 Private MD: ED Physician Yamil Thurston HPI: 03/24 19:47 This 44 yrs old Black Male presents to ER via Ambulatory with complaints of Hand sb4 Swelling. 19:47 Patient reports right hand swelling for about 3 days now. He denies any injury to the sb4 area. Denies any history of gout. States that he was seen here last night, had negative labs, and was prescribed diclofenac. He states that his pain and swelling has only worsened since. He denies any fever or chills. She denies any increased warmth to the area. Historical: - Allergies: 16:19 No Known Allergies; me1 - PMHx: 16:19 Diabetes - NIDDM; me1 - PSHx: 16:19 None; me1 - Immunization history:: Adult Immunizations up to date. - Infectious Disease History:: Denies. - Social history:: Smoking status: Patient reports the use of cigarette tobacco products, denies chronic smoking, but will smoke occasionally. ROS: 19:47 Constitutional: Negative for fever, chills, and weight loss, sb4 19:47 MS/extremity: Positive for pain, swelling, tenderness, of the right hand and right arm, 19:47 All other systems are negative, Exam: 19:51 Constitutional: This is a well developed, well nourished patient who is awake, alert, sb4 and in no acute distress. Head/Face: Normocephalic, atraumatic. Eyes: Extra-ocular motions intact. Periorbital areas with no swelling, redness, or edema. ENT: Mucous membranes moist. Respiratory: No increased work of breathing, no retractions or nasal flaring. 19:51 Musculoskeletal/extremity: Circulation is intact in all extremities. Pulses: are normal with no appreciated deficits, Perfusion: the extremity is normally perfused throughout, Sensation intact. Swelling and tenderness on right hand/wrist, full range of motion. 19:51 Skin: Small abrasions noted on thenar aspect of right hand. Vital Signs: 16:17 BP 117 / 106; Pulse 88; Resp 18; Temp 98.4; Pulse Ox 100% ; Weight 99.79 kg; Height 6 me1 ft. 9 in. ; Pain 10/10; 17:01 BP 142 / 93; Pulse 78; Resp 16; Pulse Ox 100% on R/A; db 19:00 BP 146 / 99; Pulse 73; Resp 16; Pulse Ox 100% on R/A; kb4 16:17 Body Mass Index 23.57 (99.79 kg, 205.74 cm) me1 16:17 Pain Scale: Adult me1 MDM: 16:12 Medical Screening Exam initiated sb4 19:51 Differential diagnosis: tendonitis, Cellulitis, DVT, musculoskeletal injury, fracture. sb4 Data reviewed: vital signs, nurses notes, lab test result(s), radiologic studies, doppler, plain films, I have discussed the patient's presentation/case with the attending Emergency Department Physician; and as a result, I will discharge patient. Historians other than the Patient: Spouse/Significant Other: . Care significantly affected by the following chronic conditions: Diabetes. Counseling: I had a detailed discussion with the patient and/or guardian regarding the historical points, exam findings, and any diagnostic results supporting the discharge/admit diagnosis, the presence of at least one elevated blood pressure reading (>120/80) during this emergency department visit, lab results, radiology results, the need for outpatient follow up, for definitive care, to return to the emergency department if symptoms worsen or persist or if there are any questions or concerns that arise at home. 03/24 16:20 Order name: Blood Culture Adult (2) [facility] 03/24 16:20 Order name: CBC with Diff; Complete Time: 17:41 [facility] 03/24 16:20 Order name: CMP; Complete Time: 18:48 [facility] 03/24 16:20 Order name: Lactate w/ 2H reflex if indic.; Complete Time: 18:53 [facility] 03/24 16:20 Order name: Protime (+inr); Complete Time: 18:42 [facility] 03/24 16:20 Order name: Ptt, Activated; Complete Time: 18:42 [facility] 03/24 16:20 Order name: Hand Right 3 View XRAY; Complete Time: 17:30 [facility] 03/24 16:40 Order name: UPPER EXTREMITY VENOUS UNILATE; Complete Time: 17:58 EDMS 03/24 16:20 Order name: IV Saline Lock - Large Bore; Complete Time: 17:17 sb4 03/24 16:20 Order name: Labs collected and sent; Complete Time: 17:17 sb4 03/24 17:35 Order name: Labs - recollect needed: ALL LABS SEVERELY HEMOLYZED ; Complete Time: 18:26 iw 03/24 19:39 Order name: Wrist Splint: PREFORMED; Complete Time: 20:07 sb4 Administered Medications: 17:10 Drug: morphine IVP or IV 4 mg IVP once over 4 mins Route: IVP; Infused Over: 4 mins; db Site: left wrist; 19:31 Follow up: Response: No adverse reaction kb4 17:10 Drug: Ondansetron IVP 4 mg IVP once; over 2 minutes Route: IVP; Site: left wrist; db 19:32 Follow up: Response: No adverse reaction kb4 19:50 Drug: Trimethoprim-Sulfamethoxazole PO (160 mg-800 mg (DS) 1 tablet PO once Route: PO; kb4 20:12 Follow up: Response: No adverse reaction; Medication administered at discharge. kb4 19:50 Drug: predniSONE PO 40 mg PO once Route: PO; kb4 20:12 Follow up: Response: No adverse reaction kb4 20:12 Follow up: Response: No adverse reaction; Medication administered at discharge. kb4 Disposition Summary: 03/24/25 19:20 Discharge Ordered Notes: Location: Home sb4 Problem: new sb4 Symptoms: have improved sb4 Condition: Stable sb4 Diagnosis - Cellulitis of right upper limb sb4 Followup: sb4 - With: Emergency Department - When: As needed - Reason: Fever > 102 F, Worsening of condition Discharge Instructions: - Discharge Summary Sheet sb4 - Cellulitis, Adult sb4 Forms: - Antibiotic Education sb4 - Patient Portal Instructions sb4 - Leadership Thank You Letter sb4 Prescriptions: - Prednisone 20 mg Oral Tablet - take 1 tablet ORAL route once daily for 5 days; 5 tablet; Refills: 0, Product sb4 Selection Permitted - Bactrim DS 800-160 mg Oral tablet - take 1 tablet ORAL route every 12 hours for 10 days; 20 tablet; Refills: 0, sb4 Product Selection Permitted Addendum: 03/26/2025 07:03 Co-signature as Attending Physician, Yamil Thurston MD I reviewed the patient's care r n provided by the Advanced Practice Provider and agree with the diagnosis and treatment plan. Signatures: Dispatcher [employer] Janna Manuel, RN RN Yamil Gutiérrez MD MD rn Benton, Danielle, RN Meeta Moore PA-C PA-C sb4 Lin Teixeira RN RN me1 Melinda Jung RN RN kb4 Corrections: (The following items were deleted from the chart) 03/24 16:21 16:21 Hand Right 3 View+RAD.RAD.BRZ ordered. EDMS EDMS 16:21 16:21 Extremity Venous Uni Ltd+US.RAD.BRZ ordered. EDMS EDMS
--- NOTE | 2025-03-24 19:21 | ER ---
Nurse's Notes [facility] Name: Dawson Mi Age: 44 yrs Sex: Male : 1980 Arrival Date: 03/24/2025 Time: 16:02 Bed 13 Private MD: Diagnosis: Cellulitis of right upper limb Presentation: 03/24 16:17 Chief complaint: Patient states: c/o pain to right hand w/right hand swelling that me1 started 3 days ago and has gotten worse. Pain level 10/10. Coronavirus screen: At this time, the client does not indicate any symptoms associated with coronavirus-19. Ebola Screen: No symptoms or risks identified at this time. Initial Sepsis Screen: Does the patient meet any 2 criteria? No. Patient's initial sepsis screen is negative. Does the patient have a suspected source of infection? No. Patient's initial sepsis screen is negative. Risk Assessment: Do you want to hurt yourself or someone else? Patient reports no desire to harm self or others. Onset of symptoms was March 21, 2025. 16:17 [place] Of [place] [facility] Acuity: EDINSON 3 me1 Historical: - Allergies: 16:19 No Known Allergies; me1 - PMHx: 16:19 Diabetes - NIDDM; me1 - PSHx: 16:19 None; me1 - Immunization history:: Adult Immunizations up to date. - Infectious Disease History:: Denies. - Social history:: Smoking status: Patient reports the use of cigarette tobacco products, denies chronic smoking, but will smoke occasionally. Screenin:21 [facility] ED Fall Risk Assessment (Adult) History of falling in the last 3 months, db including since admission No falls in past 3 months (0 pts) Confusion or Disorientation No (0 pts) Intoxicated or Sedated No (0 pts) Impaired Gait No (0 pts) Mobility Assist Device Used No (0 pt) Altered Elimination No (0 pt) Score/Fall Risk Level 0 - 2 = Low Risk Oriented to surroundings, Maintained a safe environment. Abuse screen: Denies threats or abuse. Denies injuries from another. Nutritional screening: No deficits noted. Tuberculosis screening: No symptoms or risk factors identified. Assessment: 17:00 Reassessment: Patient appears in no apparent distress at this time. Patient and/or db family updated on plan of care and expected duration. Pain level reassessed. Patient is alert, oriented x 3, equal unlabored respirations, skin warm/dry/pink. General: Appears in no apparent distress. uncomfortable, Behavior is calm, cooperative. Pain: Complains of pain in right hand. Neuro: Level of Consciousness is awake, alert, obeys commands, Oriented to person, place, time, situation. 17:24 Reassessment: CLIENT INTEGRATION MANAGER IS AT BEDSIDE. db 19:30 Reassessment: Patient appears in no apparent distress at this time. Patient and/or kb4 family updated on plan of care and expected duration. Pain level reassessed. Patient is alert, oriented x 3, equal unlabored respirations, skin warm/dry/pink. Patient states feeling better. Vital Signs: 16:17 BP 117 / 106; Pulse 88; Resp 18; Temp 98.4; Pulse Ox 100% ; Weight 99.79 kg; Height 6 me1 ft. 9 in. ; Pain 10/10; 17:01 BP 142 / 93; Pulse 78; Resp 16; Pulse Ox 100% on R/A; db 19:00 BP 146 / 99; Pulse 73; Resp 16; Pulse Ox 100% on R/A; kb4 16:17 Body Mass Index 23.57 (99.79 kg, 205.74 cm) me1 16:17 Pain Scale: Adult me1 ED Course: 16:03 Patient arrived in ED. al6 16:09 Meeta Appiah PA-C is PHCP. sb4 16:09 Yamil Thurston MD is Attending Physician. sb4 16:19 Triage completed. me1 16:19 Arm band placed on Patient placed in an exam room. me1 16:45 Hand Right 3 View XRAY In Process Unspecified. EDMS 16:45 Missed attempt(s): 20 gauge in right forearm. Bleeding controlled, band aid applied, db catheter tip intact. 16:50 First set of blood cultures drawn. db 16:50 Missed attempt(s): 20 gauge in left antecubital area. Bleeding controlled, band aid db applied, catheter tip intact. 17:05 Initial lab(s) drawn, by me, sent to lab. Second set of blood cultures drawn. Inserted db saline lock: 22 gauge in left wrist, using aseptic technique. Blood collected. Flushed with 10 mL NS. 17:16 Wise, Alma, RN is Primary Nurse. db 17:38 UPPER EXTREMITY VENOUS UNILATE In Process Unspecified. EDMS 18:26 Lab(s) recollected, by me, sent to lab. db 19:50 R wrist splint. kb4 19:50 IV discontinued, intact, bleeding controlled, No redness/swelling at site. Pressure kb4 dressing applied. 19:52 No provider procedures requiring assistance completed. kb4 19:55 Patient has correct armband on for positive identification. Call light in reach. kb4 Provided Education on: abx . Administered Medications: 17:10 Drug: morphine IVP or IV 4 mg IVP once over 4 mins Route: IVP; Infused Over: 4 mins; db Site: left wrist; 19:31 Follow up: Response: No adverse reaction kb4 17:10 Drug: Ondansetron IVP 4 mg IVP once; over 2 minutes Route: IVP; Site: left wrist; db 19:32 Follow up: Response: No adverse reaction kb4 19:50 Drug: Trimethoprim-Sulfamethoxazole PO (160 mg-800 mg (DS) 1 tablet PO once Route: PO; kb4 20:12 Follow up: Response: No adverse reaction; Medication administered at discharge. kb4 19:50 Drug: predniSONE PO 40 mg PO once Route: PO; kb4 20:12 Follow up: Response: No adverse reaction kb4 20:12 Follow up: Response: No adverse reaction; Medication administered at discharge. kb4 Medication: 20:11 VIS not applicable for this client. kb4 Outcome: 19:20 Discharge ordered by MD. sb4 19:55 Discharged to home ambulatory, kb4 19:55 Condition: good 19:55 Discharge instructions given to patient, Instructed on discharge instructions, follow up and referral plans. medication usage, Demonstrated understanding of instructions, follow-up care, medications, Prescriptions given X 2, 20:12 Patient left the ED. kb4 Signatures: Dispatcher [employer] EDMS Alma Wise, RN RN db Meeta Appiah PA-C PA-C sb4 Lin Teixeira RN RN me1 Zully Garcia al6 Melinda Jung RN RN kb4 Corrections: (The following items were deleted from the chart) 20:08 20:08 predniSONE PO 40 mg PO kb4 kb4 20:11 20:09 No provider procedures requiring assistance completed. kb4 kb4 : 20:09 IV discontinued, intact, bleeding controlled, No redness/swelling at site. kb4 Pressure dressing applied, kb4 : 20:09 R wrist splint kb4 kb4
[2025-03-24] MEDS ORDERED: SMZ./TMP. 800/160 MG TABLET ONE (19:32)
[2025-03-24] MEDS ORDERED: predniSONE 20 MG TAB ONE (19:33)
[2025-03-24 20:42] VITALS: TEMP 98.4; O2SAT 100
[2025-03-24 20:45] VITALS: BP 146/99
== END 2025-03-24 20:12 | disposition home or self-care (01) ==
LOC: ER 16:02
DX: L03.113 Cellulitis of right upper limb (principal); F17.210 Nicotine dependence, cigarettes, uncomplicated
CPT/HCPCS: 87040 ×2; 85025; 36415; 85610; 83605; 85730; 80053; 73130; 93971; 96375; 96374; 99284; J7512; J2405

== ENCOUNTER 2025-03-27 12:47 | Emergency (ER) | payer OTHER, SELFPAY ==
[2025-03-27] MEDS ORDERED: DOXYCYCLINE 100 MG CAP PO ONE (13:26)
[2025-03-27] MEDS ORDERED: CEPHALEXIN 250 MG CAP ONE (13:26)
--- NOTE | 2025-03-27 13:46 | ER ---
Nurse's Notes [facility] Name: Dawson Mi Age: 44 yrs Sex: Male : 1980 Arrival Date: 03/27/2025 Time: 12:47 Bed 6 Private MD: Diagnosis: Pain in right hand Presentation: 03/27 12:56 Chief complaint: Patient states: My right hand is swelling. I was seen here twice for jb4 it. Last time I was given antibiotics and steroids because they thought it was infected. This is my 3rd day on antibiotics and its getting worse. Now there are pus pockets in my hand. Coronavirus screen: At this time, the client does not indicate any symptoms associated with coronavirus-19. Ebola Screen: No symptoms or risks identified at this time. Initial Sepsis Screen: Does the patient meet any 2 criteria? HR > 90 bpm. Yes Does the patient have a suspected source of infection? No. Patient's initial sepsis screen is negative. Risk Assessment: Do you want to hurt yourself or someone else? Patient reports no desire to harm self or others. Onset of symptoms was March 27, 2025. Transition of care: patient was not received from another setting of care. 12:56 Method Of Arrival: Ambulatory jb4 12:56 Acuity: EDINSON 3 jb4 Triage Assessment: 12:59 General: Appears in no apparent distress. Behavior is calm, cooperative, appropriate bp for age. Pain: Complains of pain in right hand. EENT: No deficits noted. Neuro: No deficits noted. Cardiovascular: No deficits noted. Respiratory: No deficits noted. GI: No signs and/or symptoms were reported involving the gastrointestinal system. : No signs and/or symptoms were reported regarding the genitourinary system. Derm: No deficits noted. Musculoskeletal: Swelling present in right hand. Historical: - Allergies: 12:58 No Known Allergies; jb4 - PMHx: 12:58 Diabetes - NIDDM; jb4 - PSHx: 12:58 None; jb4 - Immunization history:: Adult Immunizations up to date. - Infectious Disease History:: Denies. - Social history:: Smoking status: Patient reports the use of cigarette tobacco products, denies chronic smoking, but will smoke occasionally. Screenin:00 [facility] ED Fall Risk Assessment (Adult) History of falling in the last 3 months, bp including since admission No falls in past 3 months (0 pts) Confusion or Disorientation No (0 pts) Intoxicated or Sedated No (0 pts) Impaired Gait No (0 pts) Mobility Assist Device Used No (0 pt) Altered Elimination No (0 pt) Score/Fall Risk Level 0 - 2 = Low Risk Oriented to surroundings. Abuse screen: Denies threats or abuse. Denies injuries from another. Nutritional screening: No deficits noted. Tuberculosis screening: No symptoms or risk factors identified. Assessment: 13:00 General: SEE TRIAGE NOTE. bp Vital Signs: 12:56 BP 120 / 87; Pulse 101; Resp 16; Temp 98.1(TE); Pulse Ox 99% on R/A; Weight 99.79 kg jb4 (R); Height 6 ft. 8 in. (R); Pain 10/10; 14:27 BP 115 / 79; Pulse 89; Resp 16; Pulse Ox 99% ; bp 12:56 Body Mass Index 24.17 (99.79 kg, 203.2 cm) jb4 12:56 Pain Scale: Adult jb4 ED Course: 12:49 Patient arrived in ED. al6 12:50 [facility] Spaulding [facility]C [facility] 12:50 Michelle Beltran MD is Attending Physician. dr5 12:52 Ronny Deng, GISELE is Primary Nurse. bp 12:58 Triage completed. jb4 12:58 Arm band placed on right wrist. jb4 13:00 Patient has correct armband on for positive identification. bp 14:28 No provider procedures requiring assistance completed. Patient did not have IV access bp during this emergency room visit. Administered Medications: 13:40 Drug: Doxycycline PO 100 mg PO once Route: PO; aa5 14:27 Follow up: Response: No adverse reaction bp 13:40 Drug: Cephalexin PO 500 mg PO once Route: PO; aa5 14:27 Follow up: Response: No adverse reaction bp Medication: 13:00 VIS not applicable for this client. bp Outcome: 13:45 Discharge ordered by . dr5 14:29 Discharged to home ambulatory, bp 14:29 Condition: stable 14:29 Discharge instructions given to patient, Instructed on discharge instructions, follow up and referral plans. medication usage, Demonstrated understanding of instructions, follow-up care, medications, Prescriptions given X 3, 14:29 Patient left the ED. bp Signatures: Valerie Jason, RN RN aa5 Jaun Blankenship, RN RN jb4 Ronny Deng, RN RN bp Jasson, Jori, FAMILY SERVICE ASSISTANT-C FAMILY SERVICE ASSISTANT-Cdr5 Zully Garcia6
--- NOTE | 2025-03-27 13:46 | EDPHYS ---
Physician Documentation [facility] Name: Dawson Mi Age: 44 yrs Sex: Male : 1980 Arrival Date: 03/27/2025 Time: 12:47 Bed 6 Private MD: ED Physician Michelle Beltran HPI: 03/27 14:49 This 44 yrs old Black Male presents to ER via Ambulatory with complaints of Hand dr5 Swelling. 14:49 The patient or guardian reports swelling. The complaints affect the palm of right hand. dr5 Onset: The symptoms/episode began/occurred 4 day(s) ago. Patient is a 44-year-old male with history of diabetes coming in with swelling to right palm of hand has been going on for the past 4 days. Patient reports he has been here multiple times and is currently only on Bactrim which does not seem to be helping his swelling or pain.. Historical: - Allergies: 12:58 No Known Allergies; jb4 - PMHx: 12:58 Diabetes - NIDDM; jb4 - PSHx: 12:58 None; jb4 - Immunization history:: Adult Immunizations up to date. - Infectious Disease History:: Denies. - Social history:: Smoking status: Patient reports the use of cigarette tobacco products, denies chronic smoking, but will smoke occasionally. ROS: 14:49 Constitutional: as per hpi dr5 Exam: 14:49 Constitutional: This is a well developed, well nourished patient who is awake, alert, dr5 and in no acute distress. Head/Face: Normocephalic, atraumatic. Eyes: Pupils equal round and reactive to light, extra-ocular motions intact. Lids and lashes normal. Conjunctiva and sclera are non-icteric and not injected. Cornea within normal limits. Periorbital areas with no swelling, redness, or edema. Neck: Trachea midline, no thyromegaly or masses palpated, and no cervical lymphadenopathy. Supple, full range of motion without nuchal rigidity, or vertebral point tenderness. No Meningismus. Chest/axilla: Normal chest wall appearance and motion. Nontender with no deformity. No lesions are appreciated. Cardiovascular: Regular rate and rhythm with a normal S1 and S2. Normal PMI, no JVD. No pulse deficits. Respiratory: Lungs have equal breath sounds bilaterally, clear to auscultation. No rales, rhonchi or wheezes noted. No increased work of breathing, no retractions or nasal flaring. Abdomen/GI: Soft, non-tender, non-distended Back: No spinal tenderness. No costovertebral tenderness. Full range of motion. Skin: Warm, dry with normal turgor. Normal color with no rashes, no lesions, and no evidence of cellulitis. Neuro: Awake and alert, GCS 15, oriented to person, place, time, and situation. Cranial nerves II-XII grossly intact. Motor strength 5/5 in all extremities. Sensory grossly intact. Cerebellar exam normal. Normal gait. 14:49 Musculoskeletal/extremity: Extremities: grossly normal except: noted in the palm of right hand: swelling, ROM: no acute changes, intact in all extremities, Circulation is intact in all extremities. Sensation intact. Vital Signs: 12:56 BP 120 / 87; Pulse 101; Resp 16; Temp 98.1(TE); Pulse Ox 99% on R/A; Weight 99.79 kg jb4 (R); Height 6 ft. 8 in. (R); Pain 10/10; 14:27 BP 115 / 79; Pulse 89; Resp 16; Pulse Ox 99% ; bp 12:56 Body Mass Index 24.17 (99.79 kg, 203.2 cm) jb4 12:56 Pain Scale: Adult jb4 MDM: 12:51 Medical Screening Exam initiated dr5 14:49 Differential diagnosis: contusion, abrasion, tendonitis. Data reviewed: vital signs, dr5 nurses notes. Consideration of Admission/Observation Escalation of care including admission/observation considered. Escalation considered patient was not able to move fingers, have noticed tingling to hand, fever. . I considered the following discharge prescriptions or medication management in the emergency department I discussed and recommended Over The Counter medications, Medications were administered in the Emergency Department. See MAR. Test considered but Not performed: X-ray: X-ray not completed due to being recently completed. Care significantly affected by the following chronic conditions: Diabetes. Care significantly affected by the following Social Determinants of Health: Poor access to healthcare and/or lack of insurance, Poor access to transportation, Problems related to employment. Counseling: I had a detailed discussion with the patient and/or guardian regarding the historical points, exam findings, and any diagnostic results supporting the discharge/admit diagnosis, the presence of at least one elevated blood pressure reading (>120/80) during this emergency department visit, to return to the emergency department if symptoms worsen or persist or if there are any questions or concerns that arise at home. Medication response: Doxycycline, cephalexin. Response to treatment: There is no appreciated change of the patient's symptoms at this time. Special discussion: I discussed with the patient/guardian in detail that at this point there is no indication for admission to the hospital. It is understood, however, that if the symptoms persist or worsen the patient needs to return immediately for re-evaluation. Special discussion: Based on the history and exam findings, there is no indication for further emergent testing or inpatient evaluation. I discussed with the patient/guardian the need to see the hand specialist for further evaluation of the symptoms. ED course: Will change Bactrim to doxycycline and Keflex. Recommended patient follow-up with Dr. Milton Iglesias tomorrow in [place] who is a hand specialist. Patient verbalized understanding and will make an appointment tomorrow. First dose of antibiotics given in ER. Recommended continuing steroids at home. All questions answered. Strict ER precautions given. Administered Medications: 13:40 Drug: Doxycycline PO 100 mg PO once Route: PO; aa5 14:27 Follow up: Response: No adverse reaction bp 13:40 Drug: Cephalexin PO 500 mg PO once Route: PO; aa5 14:27 Follow up: Response: No adverse reaction bp Disposition Summary: 03/27/25 13:45 Discharge Ordered Notes: Location: Home dr5 Condition: Stable dr5 Diagnosis - Pain in right hand dr5 Followup: dr5 - With: Emergency Department - When: As needed - Reason: Worsening of condition Followup: dr5 - With: Private Physician - When: Dr. Milton Iglesias - Reason: Recheck today's complaints, Continuance of care, Re-evaluation by your physician Discharge Instructions: - Discharge Summary Sheet dr5 - Cellulitis, Adult dr5 - Hand Pain dr5 Forms: - Work release form dr5 - Medication Reconciliation Form dr5 - Antibiotic Education dr5 - Patient Portal Instructions dr5 - Leadership Thank You Letter dr5 Prescriptions: - Cephalexin 500 mg Oral Capsule - take 1 capsule ORAL route every 12 hours for 10 days; 20 capsule; Refills: 0, dr5 Product Selection Permitted - Doxycycline Hyclate 100 mg Oral Tablet - take 1 tablet ORAL route every 12 hours; 20 tablet; Refills: 0, Product dr5 Selection Permitted - Tramadol 50 mg Oral Tablet - take 1 tablet ORAL route every 8 hours as needed; 12 tablet; Refills: 0, dr5 Product Selection Permitted Signatures: Valerie Jason, RN RN aa5 Jaun Blankenship RN RN jb4 Jori Spaulding, BOOKIE-C BOOKIE-Cdr5 Ronny Deng RN bp
[2025-03-27 14:38] VITALS: BP 115/79; O2SAT 99
[2025-03-27 14:39] VITALS: TEMP 98.1
== END 2025-03-27 14:29 | disposition home or self-care (01) ==
LOC: ER 12:47
DX: M79.641 Pain in right hand (principal); F17.210 Nicotine dependence, cigarettes, uncomplicated
CPT/HCPCS: 99283

== ENCOUNTER 2025-04-13 15:39 | Emergency (ER) | payer OTHER ==
[2025-04-13 17:27] LABS: Absolute Lymphocytes (CBC) 2.0 K/uL (0.7-4.9); Hematocrit 43.2 % (39.6-49.0); Hemoglobin 14.0 g/dL (13.6-17.9); MCH 24.7 pg (27.0-35.0); MCHC 32.4 g/dL (32.0-36.0); MCV 76.4 fL (80-100); MPV 8.3 fL (7.6-11.3); Nucleated RBC Absolute Count 0.0 (0-0); Nucleated Red Blood Cells % 0.2 % (0-0); RBC Red Blood Cell Count 5.65 M/uL (4.33-5.43); White Blood Count 4.70 thou/uL (4.3-10.9)
[2025-04-13 17:38] LABS: PT Prothrombin Time 12.6 SECONDS (10-13.0); PTT, Activated Partial Thromb 32.4 SECONDS (27.2-37.4); Protime INR 1.12
[2025-04-13 17:48] LABS: ALT/SGPT 30.0 U/L (16-61); Albumin 3.3 g/dL (3.4-5.0); Albumin/Globulin Ratio 0.8 (1.1-1.8); Alkaline Phosphatase 87.0 U/L (45-117); Anion Gap 10.0 mEq/L (5.0-15.0); BUN Blood Urea Nitrogen 17.0 mg/dL (7-18); Globulin 4.1 g/dL (2.3-3.5); Glucose Level 318.0 mg/dL (74-106)
[2025-04-13 17:49] LABS: AST/SGOT 18.0 U/L (15-37); Potassium 4.0 mEq/L (3.5-5.1)
--- NOTE | 2025-04-13 18:05 | EDPHYS ---
Physician Documentation [facility] Name: Dawson Mi Age: 44 yrs Sex: Male : 1980 Arrival Date: 04/13/2025 Time: 15:39 Bed 20 Private MD: ED Physician Sarath Saucedo HPI: 04/13 18:09 This 44 yrs old Black Male presents to ER via Ambulatory with complaints of right hand kb skin problem. 18:09 Patient is a 44-year-old male who presents for persistent wounds to the right hand. kb States that he was seen on 24 March and given Bactrim for cellulitis. Returned on the for continued symptoms and was given doxycycline and Keflex. Patient completed 10-day course of those and came in for reevaluation for persistent wound. Historical: - Allergies: 16:04 No Known Allergies; dd2 - PMHx: 16:04 Diabetes - NIDDM; dd2 - PSHx: 16:04 None; dd2 - Social history:: Smoking status: Patient reports the use of cigarette tobacco products, denies chronic smoking, but will smoke occasionally. ROS: 18:07 Constitutional: As per HPI kb Exam: 18:07 Constitutional: This is a well developed, well nourished patient who is awake, alert, kb and in no acute distress. Head/Face: Normocephalic, atraumatic. ENT: Moist Mucous membranes Cardiovascular: Regular rate Respiratory: Respirations even and unlabored. No increased work of breathing. Talking in full sentences MS/ Extremity: Pulses equal, no cyanosis. Neurovascular intact. Full, normal range of motion. Neuro: Awake and alert, GCS 15, oriented to person, place, time, and situation. 18:07 Skin: Small open wounds to right thumb with skin sloughing to hand. Vital Signs: 16:00 BP 123 / 81; Pulse 85; Resp 16; Temp 98; Pulse Ox 100% on R/A; Weight 90.72 kg; Height dd2 6 ft. 8 in. ; Pain 4/10; 18:46 BP 127 / 75; Pulse 79; Resp 16; Pulse Ox 100% ; bp 16:00 Body Mass Index 21.97 (90.72 kg, 203.2 cm) dd2 16:00 Pain Scale: Adult dd2 Procedures: 18:08 Performed Debridement. Debrided sloughing skin off of hand. kb MDM: 15:43 Medical Screening Exam initiated kb 17:50 Data reviewed: vital signs, nurses notes. Management of patient was discussed with the kb following: Dr Saucedo, evaluated pt as well, recommends bactrim and follow up with Dr Teixeira for wound care. 18:08 Differential diagnosis: Abscess, cellulitis, wound infection. Consideration of kb Admission/Observation Escalation of care including admission/observation considered. Admission considered but discussed case with Dr. Sauceod who evaluated patient as well and recommends outpatient follow-up. Test considered but Not performed: CT: CT of the hand considered to rule out abscess the patient has full range of motion of hand and CT not recommended by Dr. Saucedo. Counseling: I had a detailed discussion with the patient and/or guardian regarding the historical points, exam findings, and any diagnostic results supporting the discharge/admit diagnosis, lab results, the need for outpatient follow up, a family practitioner, to return to the emergency department if symptoms worsen or persist or if there are any questions or concerns that arise at home. 04/13 16:03 Order name: Blood Culture Adult (2) kb 04/13 16:03 Order name: CBC with Diff; Complete Time: 17:28 kb 04/13 16:03 Order name: CMP; Complete Time: 17:49 kb 04/13 16:03 Order name: Lactate w/ 2H reflex if indic.; Complete Time: 17:49 kb 04/13 16:03 Order name: Protime (+inr); Complete Time: 17:43 kb 04/13 16:03 Order name: Ptt, Activated; Complete Time: 17:43 kb 04/13 16:03 Order name: Cardiac monitoring; Complete Time: 17:16 kb 04/13 16:03 Order name: IV Saline Lock - Large Bore; Complete Time: 17:16 kb 04/13 16:03 Order name: Labs collected and sent; Complete Time: 17:16 kb 04/13 16:03 Order name: Vital Signs; Complete Time: 17:16 kb Administered Medications: No medications were administered Disposition: 04/14 07:36 Co-signature as Attending Physician, Sarath Saucedo MD I agree with the assessment and lindy plan of care. Disposition Summary: 04/13/25 18:04 Discharge Ordered Notes: Location: Home kb Condition: Stable kb Diagnosis - Local infection of the skin and subcutaneous tissue, unspecified kb Followup: kb - With: Emergency Department - When: As needed - Reason: Worsening of condition Followup: kb - With: Private Physician - When: 2 - 3 days - Reason: Recheck today's complaints, Continuance of care, Re-evaluation by your physician Followup: kb - With: Aakash Teixeira MD - When: As needed - Reason: Recheck today's complaints Discharge Instructions: - Discharge Summary Sheet kb - Wound Infection, [id number] kb Forms: - Medication Reconciliation Form kb - Antibiotic Education kb - Prescription Opioid Use kb - Patient Portal Instructions kb - Leadership Thank You Letter kb Prescriptions: - Bactrim DS 800-160 mg Oral Tablet - take 1 tablet ORAL route every 12 hours for 10 days; 20 tablet; Refills: 0, kb Product Selection Permitted Signatures: Dispatcher [employer] EDLoreto Zepeda, BARTENDERS-C BARTENDERS-Sarath Seymour MD MD cha DAVIS, DIANA, RN RN dd2 Corrections: (The following items were deleted from the chart) 04/13 16:03 16:03 BLOOD CULTURE*+BA.LAB.BRZ ordered. EDMS EDMS 16:03 16:03 CBC+H.LAB.BRZ ordered. EDMS EDMS 16:03 16:03 COMPREHENSIVE METABOLIC PANEL+C.LAB.BRZ ordered. EDMS EDMS 16:03 16:03 LACTATE+C.LAB.BRZ ordered. EDMS EDMS 16:03 16:03 PROTIME (+INR)+COAG.LAB.BRZ ordered. EDMS EDMS 16:03 16:03 PTT, ACTIVATED+COAG.LAB.BRZ ordered. EDMS EDMS
--- NOTE | 2025-04-13 18:05 | ER ---
Nurse's Notes [facility] Name: Dawson Mi Age: 44 yrs Sex: Male : 1980 Arrival Date: 04/13/2025 Time: 15:39 Bed 20 Private MD: Diagnosis: Local infection of the skin and subcutaneous tissue, unspecified Presentation: 04/13 16:00 Chief complaint: Patient states: HE WAS GIVEN 10 DAY ANTIBIOTICS FOR WOUND TO RT HAND, dd2 TOOK ALL THE ANTIBIOTICS AND CONTINUES TO HAVE SWELLING, DRAINAGE AND PEELING. PT REPORTS ADVISED TO RETURN TO THE ER FOR FURTHER TEST AND TREATMENT. Coronavirus screen: At this time, the client does not indicate any symptoms associated with coronavirus-19. Ebola Screen: No symptoms or risks identified at this time. Initial Sepsis Screen: Does the patient meet any 2 criteria? No. Patient's initial sepsis screen is negative. Does the patient have a suspected source of infection? No. Patient's initial sepsis screen is negative. Risk Assessment: Do you want to hurt yourself or someone else? Patient reports no desire to harm self or others. Onset of symptoms was March 27, 2025. 16:00 Method Of Arrival: Ambulatory dd2 16:00 Acuity: EDINSON 3 dd2 Triage Assessment: 16:04 General: Appears in no apparent distress. uncomfortable, Behavior is calm, cooperative, dd2 appropriate for age. Pain: Complains of pain in lateral aspect of right hand and palmar aspect of proximal phalanx of right thumb Pain currently is 4 out of 10 on a pain scale. Derm: Wound noted palmar aspect of proximal phalanx of right thumb Wound is OPEN WOUND X2, KONSTANTIN-WOUND TISSUE PEELING, EDEMA TO RT HAND Reports pain peeling. Historical: - Allergies: 16:04 No Known Allergies; dd2 - PMHx: 16:04 Diabetes - NIDDM; dd2 - PSHx: 16:04 None; dd2 - Social history:: Smoking status: Patient reports the use of cigarette tobacco products, denies chronic smoking, but will smoke occasionally. Screenin:45 [facility] ED Fall Risk Assessment (Adult) History of falling in the last 3 months, bp including since admission No falls in past 3 months (0 pts) Confusion or Disorientation No (0 pts) Intoxicated or Sedated No (0 pts) Impaired Gait No (0 pts) Mobility Assist Device Used No (0 pt) Altered Elimination No (0 pt) Score/Fall Risk Level 0 - 2 = Low Risk Oriented to surroundings. Abuse screen: Denies threats or abuse. Denies injuries from another. Nutritional screening: No deficits noted. Tuberculosis screening: No symptoms or risk factors identified. Assessment: 16:05 General: SEE TRIAGE NOTE. bp Vital Signs: 16:00 BP 123 / 81; Pulse 85; Resp 16; Temp 98; Pulse Ox 100% on R/A; Weight 90.72 kg; Height dd2 6 ft. 8 in. ; Pain 4/10; 18:46 BP 127 / 75; Pulse 79; Resp 16; Pulse Ox 100% ; bp 16:00 Body Mass Index 21.97 (90.72 kg, 203.2 cm) dd2 16:00 Pain Scale: Adult dd2 ED Course: 15:42 Patient arrived in ED. im 15:43 Loreto Rahman FNP-C [facility] kb 15:43 Sarath Saucedo MD is Attending Physician. kb 16:03 Triage completed. dd2 16:04 Arm band placed on left wrist. dd2 16:23 Patient placed in an exam room, on a stretcher. jb4 16:58 Ronny Deng, GISELE is Primary Nurse. bp 17:15 Initial lab(s) drawn, by me, sent to lab. First set of blood cultures drawn by me, bp Second set of blood cultures drawn by me. 17:16 Inserted saline lock: 20 gauge in left forearm, using aseptic technique. Blood bp collected. Flushed with 10 mL NS. 18:04 Aakash Teixeira MD is Referral Physician. kb 18:45 Patient has correct armband on for positive identification. bp 18:45 No provider procedures requiring assistance completed. IV discontinued, intact, bp bleeding controlled, No redness/swelling at site. Pressure dressing applied. Administered Medications: No medications were administered Outcome: 18:04 Discharge ordered by . kb 18:45 Discharged to home ambulatory, bp 18:45 Condition: stable 18:45 Discharge instructions given to patient, Instructed on discharge instructions, follow up and referral plans. medication usage, Demonstrated understanding of instructions, follow-up care, medications, Prescriptions given X 1, 18:46 Patient left the ED. bp Signatures: Loreto Rahman FNP-C FNP-Ckb Bryson, James, RN RN jb4 Ronny Deng RN RN bp Olivia Davey DIANA, RN RN dd2 Corrections: (The following items were deleted from the chart) 16:04 16:00 Onset of symptoms was March 30, 2025 dd2 dd2
[2025-04-13 19:26] VITALS: BP 127/75; O2SAT 100
[2025-04-13 19:28] VITALS: TEMP 98
== END 2025-04-13 18:46 | disposition home or self-care (01) ==
LOC: ER 15:39
DX: L08.9 Local infection of the skin and subcutaneous tissue, unspecified (principal)
CPT/HCPCS: 36415; 80053; 83605; 85025; 85610; 85730; 87040; 99284